=== PATIENT | male | born 1960 | race Caucasian/White ===

== ENCOUNTER 2022-04-13 02:19 | Outpatient (CLI) | payer BC, SELFPAY ==
[2022-04-13 12:24] LABS: Source Nasal/Nares
[2022-04-13 16:03] LABS: COVID-19 PCR Negative (Negative)
== END 2022-04-13 02:20 | disposition home or self-care (01) ==
PROVIDERS: PCP Family Medicine; Visit Provider Surgery
DX: Z20.822 Contact with and (suspected) exposure to COVID-19 (principal); Z01.818 Encounter for other preprocedural examination
CPT/HCPCS: 87635

== ENCOUNTER 2022-04-15 11:08 | Day surgery (SDC) | payer BC, SELFPAY ==
[2022-04-15] VITALS (10 sets, daily range): BP systolic 103–178; BP diastolic 62–94; PULSE 50–69; RESP 11–17; TEMP 36–36.6; O2SAT 94–98; BMI 25.1
--- NOTE | 2022-04-15 07:35 | ROE_ITS ---
Date of service: 04/15/22 Time of Service: 14:02 Operative Note Operative Note DATE OF PROCEDURE: 04/15/22 PRE-OP DIAGNOSIS: left inguinal hernia POST-OP DIAGNOSIS: other (indirect and direct hernia ) PROCEDURE: Left inguinal hernia repair with mesh SURGEON: Emily Fletcher TOXICOLOGY TEACHER: Timothy Webb ANESTHESIA TYPE: Local By Surgeon, General LMA/ETT and Primary Nerve Block Refer to Anesthesia Record ESTIMATED BLOOD LOSS: 15 COMPLICATIONS: None Patient was transported to: PACU Patient's condition: stable Implants: BARD Mesh: REF- [id number] LOT- [id number] 07-24-2025 Indications: Mr. Bruce is a pleasant 61-year-old gentleman with a left inguinal hernia x2 weeks.? It sounds like it was incarcerated yesterday but they were able to reduce it in the emergency department at [facility].? The patient is feeling somewhat better today.? His nausea has almost resolved.? On examination he does have a significant left inguinal hernia.? It is quite easily reduced today.? We discussed hernia repair with mesh in detail as well as the risks, complications and benefits.? We reviewed pain control modalities with a nerve block, preop cocktail of Tylenol celecoxib and gabapentin.? The hope is that he will be able to go home on Tylenol and ibuprofen only.? We also reviewed COVID testing prior to the procedure.? He was given a pamphlet with pictures regarding the repair as well as some pre and post instructions. Risks, benefits and complications have been reviewed. Complications include but are not limited to bleeding, infection, injury to vas, vessels and nerves, injury to bowel and adverse reaction to medications. Questions were entertained and answered to their satisfaction and they wished to proceed. Proceed with left inguinal hernia repair with mesh. Findings: Indirect and direct hernia Procedure Description: After informed concent was obtained the patient was taken to the operating room and placed in a supine position. Monitors and SCDs were applied and a timeout was done. The patient's name, date of , procedure type, procedure site, allergies to medications, preoperative antibiotic, and DVT prophylaxis were all reviewed. Fire risk was assessed. Next anesthesia did a tap block on the left side under ultrasound guidance. Please see their separate dictation. Once anesthesia was done the abdomen was prepped and draped in a sterile nj rgical fashion. 0.5% Marcainel was injected into the dermis in the left lower quadrant. An incision was made with a 10 blade in the left lower quadrant. Dissection was done with cautery through the subcutaneous tissues and Ashlee's fascia down to the external oblique fascia. The external ring was identified and the external oblique fascia was opened sharply through the external ring. The cut fascia was grasped with hemostats the cord structures were identified and a Hardy drain was placed around them. The ilioinguinal nerve was identified and cut. The cremasteric muscle was dissected away from the cord structures using both cautery and blunt dissection. A hernia sac was identified and removed from the cord structures using blunt dissection. The hernia sac was suture ligated and amputated. The remnant was pushed back into the peritoneum. There was a large cord lipoma which was removed from the cord structures. A flat piece of mesh was then attached to the lacunar ligament using a 2-0 Prolene double armed suture. The mesh was secured laterally and medially with a 2-0 Prolene, with a running suture. The tails of the mesh were wrapped around the cord structures effectively cinching down the internal ring. Once the mesh was secured the tissues were irrigated with some normal saline. No bleeding was identified. The external oblique fascia was reapproximated using 2-0 Vicryl running suture. The Ashlee's fascia was reapproximated using interrupted 3-0 Vicryl. The dermis was reapproximated with a running 4-0 Vicryl. The skin was cleaned and dried and skin affix was applied. The patient was woken up and taken back to recovery in stable condition. There were no immediate complications. Sponge, instrument and needle counts were correct at the end of the case x2.
--- NOTE | 2022-04-15 07:37 | PDOC.DSDIS_ITS ---
Discharge Plan Disposition Patient Disposition: HOME Condition: Good Discharge Details Reason For Visit: inguinal hernia repair Attending Provider: Emily Fletcher Primary Care Provider: Deven Perez Home Meds and New Rx's Prescriptions: Continued trazodone 150 mg tablet 150 mg PO DAILY omeprazole 20 mg capsule,delayed release(DR/EC) 20 mg PO DAILY atorvastatin 40 mg tablet 40 mg PO DAILY bupropion HCl 150 mg tablet extended release 24 hr 300 mg PO QAM indomethacin 75 mg capsule, extended release 75 mg PO BID fluoxetine 60 mg tablet 60 mg PO DAILY lisinopril 10 mg tablet 20 mg PO DAILY hydrochlorothiazide 25 mg tablet 25 mg PO DAILY Discharge Instructions Additional Instructions: Activity at Home after surgery: 1. Make sure you walk outside at least 4 times per day 2. You should be able to climb a flight of stairs 3. No driving while in pain or taking pain medications 4. No strenuous activity or heavy lifting for 4 weeks (open surgery). No lifting >10 lb Diet, Nutrition, & wound healin. Avoid alcohol until after you are recovered from your surgery 2. Make sure to eat plenty of lean protein (meat, fish, eggs, cottage cheese, beans) 3. Eat a variety of fruits and vegetables. Eat plenty of high fiber foods to avoid constipation. 4. Drink plenty of liquids to stay hydrated and avoid constipation Pain Medications: 1. Tylenol 650mg every 6 hours as needed and Ibuprofen 600 mg every 6 hours as needed. You may alternate between the 2 medications every 3 hours 2. If a narcotic has been prescribed take as directed only for breakthrough pain For Constipation: 1. Take Milk of Magnesia or MiraLax as needed for constipation Other: 1. You may shower daily. Do not scrub the incisions 2. Do not soak the incisions for 1 week 3. You may alternate ice and heat as needed for pain and swelling Wound Care: 1. Keep the incisions clean and dry Please call our office if you develop: 1. Fevers >101.5 2. Nausea or Vomiting 3. Worsening pain 4. Redness and thick discharge from the wounds If after hours please call the Hospital at and ask to speak to the on-call surgeon Referrals: Emily Fletcher MD [ [facility] STAFF PHYSICIAN] - Activity:: as above Shower/Bathe:: 24 hours Diet:: As Tolerated Discharge Orders Discharge Orders: Discharge Order (Routine); Ordered 04/15/22 Ordered By: Emily Fletcher
--- NOTE | 2022-04-15 08:18 | W.ANESPRE ---
General Info Height: 5 ft 10.5 in Weight: 81.647 kg Body Mass Index (BMI): 25.4 Surgical Procedure: Operation Date: 04/15/22 13:10 Proposed Procedure Side Surgeon p Herniorrhaphy Inguinal w/Mesh Left Emily Fletcher MD Meds Allergies and Home Medications Allergies Allergy/AdvReac Type Severity Reaction Status Date / Time house dust mite Allergy Unknown Verified 04/13/22 11:40 pollen extracts Allergy Unknown Verified 04/13/22 11:40 tree and shrub pollen Allergy Unknown Verified 04/13/22 11:40 weed pollen Allergy Unknown Verified 04/13/22 11:40 Home Medication Medication Instructions Recorded atorvastatin 40 mg tablet 40 mg PO DAILY 09/05/18 bupropion HCl 150 mg 24 hr tablet, 300 mg PO QAM 09/05/18 extended release fluoxetine 60 mg tablet 60 mg PO DAILY 09/05/18 indomethacin 75 mg 75 mg PO BID 09/05/18 capsule,extended release hydrochlorothiazide 25 mg tablet 25 mg PO DAILY 01/07/19 lisinopril 10 mg tablet 20 mg PO DAILY 01/07/19 omeprazole 20 mg capsule,delayed 20 mg PO DAILY 04/05/22 release trazodone 150 mg tablet 150 mg PO DAILY 04/05/22 Current Visit Medications: Current Medications Generic Name Dose Route Start Last Admin Trade Name Freq PRN Reason Stop Dose Admin Acetaminophen 1,000 mg 04/15/22 06:00 Acetaminophen 500 Mg Tab PO 04/15/22 18:00 PREOP NAN Citric Acid/Sodium Citrate 30 ml 04/15/22 06:00 Sodium Citrate 30 Ml Cup PO 04/15/22 18:00 PREOP NAN Gabapentin 300 mg 04/15/22 06:00 Gabapentin 300 Mg Cap PO 04/15/22 18:00 PREOP NAN Ringer's Solution 1,000 mls @ 80 mls/hr 04/15/22 06:00 IV 05/14/22 23:59 INFUSION NAN Ondansetron HCl 4 mg/ Sodium 52 mls @ 200 mls/hr 04/15/22 07:38 Chloride IVPB Q6H PRN PRN IV Miscellaneous Supplies 1 each 04/15/22 06:00 Iv Access IV 05/14/22 23:59 DIRECTED NNA Oxycodone HCl 5 mg 04/15/22 07:38 Oxycodone 5 Mg Tab PO Q3H PRN PRN Pain Sodium Chloride 0 ml 04/15/22 06:00 Normal Saline Flush 10 Ml Syr IV 05/14/22 23:59 PRN PRN Sodium Chloride 0 ml 04/15/22 06:00 Normal Saline 10 Ml Vial IJ 05/14/22 23:59 DIRECTED PRN Sterile Water 0 ml 04/15/22 06:00 Water,Injection,Sterile 10 Ml Vial IJ 05/14/22 23:59 DIRECTED PRN PFSH Active Problems Active Problems: Problem Status Onset Code Left inguinal hernia K40.90 Medical History Medical History (Updated 04/13/22 @ 11:38 by Damaso Zaragoza) Asthma Carpal tunnel syndrome on both sides Chronic fatigue Depression Duodenitis Gastritis GERD (gastroesophageal reflux disease) Hyperlipidemia Hypertension Insomnia Memory loss Per pt. states it his Short-term memory, sometimes walks into a room and can't remember what he went in there for. Has neen neurology. Signs for self. Obstructive sleep apnea PTSD (post-traumatic stress disorder) Surgical History Surgical History H/O knee surgery H/O sinus surgery Tobacco Smoking/Tobacco Use Status: Current-Occasional Tobacco Type: cigarettes Alcohol Alcohol Intake: never Substance Use Substance use: Rarely Substance use type: marijuana Vital Signs and Lab Results Lab Results Blood Type / Crossmatch: No Data to Display Complete Blood Count: No Data to Display Complete Metabolic Panel: No Data to Display Liver Function Panel: No Data to Display Coagulation Panel: No Data to Display Cardiac Panel: No Data to Display Arterial Blood Gas: No Data to Display Venous Blood Gas: No Data to Display Pancreas Panel: No Data to Display Thyroid Panel: No Data to Display Infectious Disease: Coronavirus (COVID-19)(PCR) Negative (Negative) 04/13/22 08:25 Coronavirus 2019 Source Nasal/Nares 04/13/22 08:25 Blood Cultures: No Data to Display Toxicology Panel: No Data to Display Anesthesia Assessment and Plan Anesthesia History Personal History: No History of Anesthesia Complications Family History: Family History Unknown Implantable Cardiac Device Does patient have a Pacemaker or an ICD?: No ASA Classification Emergency Case?: No Anesthesia Plan Resuscitation Status: Full Code Anesthesia Technique: General Anesthesia Airway Planned: LMA Pain Management: Surgeon and patient request nerve block Monitors Used: Standard Monitors Preoperative Comments:: 61 yo male for inguinal hernia repair. Sig PMHx: GERD (omeprozole), HTN (lisinopril/HCTZ), ELIZABETH, PTSD, ELIZABETH, occ smoker (tobacco/cannabis).
[2022-04-15] MEDS: Sodium Citrate 30 ML CUP PO (12:06)
[2022-04-15] MEDS: Gabapentin 300 MG CAP PO (12:06)
[2022-04-15] MEDS: Acetaminophen 500 MG TAB 1000 MG PO (12:06)
[2022-04-15] MEDS: Lactated Ringers 1,000 ML 80 ML IV (12:16)
--- NOTE | 2022-04-15 12:32 | W.ANESPRE ---
General Info Date of Service Date Performed: 04/15/22 Height: 5 ft 10 in Weight: 79.5 kg Body Mass Index (BMI): 25.1 Surgical Procedure: Operation Date: 04/15/22 13:10 Proposed Procedure Side Surgeon p Herniorrhaphy Inguinal w/Mesh Left Emily Fletcher MD Meds Allergies and Home Medications Allergies Allergy/AdvReac Type Severity Reaction Status Date / Time house dust mite Allergy Unknown Verified 04/15/22 11:47 pollen extracts Allergy Unknown Verified 04/15/22 11:47 tree and shrub pollen Allergy Unknown Verified 04/15/22 11:47 weed pollen Allergy Unknown Verified 04/15/22 11:47 Home Medication Medication Instructions Recorded atorvastatin 40 mg tablet 40 mg PO DAILY 09/05/18 bupropion HCl 150 mg 24 hr tablet, 300 mg PO QAM 09/05/18 extended release fluoxetine 60 mg tablet 60 mg PO DAILY 09/05/18 indomethacin 75 mg 75 mg PO BID 09/05/18 capsule,extended release hydrochlorothiazide 25 mg tablet 25 mg PO DAILY 01/07/19 lisinopril 10 mg tablet 20 mg PO DAILY 01/07/19 omeprazole 20 mg capsule,delayed 20 mg PO DAILY 04/05/22 release trazodone 150 mg tablet 150 mg PO DAILY 04/05/22 Current Visit Medications: Current Medications Generic Name Dose Route Start Last Admin Trade Name Freq PRN Reason Stop Dose Admin Acetaminophen 1,000 mg 04/15/22 06:00 04/15/22 12:06 Acetaminophen 500 Mg Tab PO 04/15/22 18:00 1,000 mg PREOP NAN Administration Citric Acid/Sodium Citrate 30 ml 04/15/22 06:00 04/15/22 12:06 Sodium Citrate 30 Ml Cup PO 04/15/22 18:00 30 ml PREOP NAN Administration Gabapentin 300 mg 04/15/22 06:00 04/15/22 12:06 Gabapentin 300 Mg Cap PO 04/15/22 18:00 300 mg PREOP NAN Administration Ringer's Solution 1,000 mls @ 80 mls/hr 04/15/22 06:00 04/15/22 12:16 IV 05/14/22 23:59 80 mls/hr INFUSION NAN Administration Ondansetron HCl 4 mg/ Sodium 52 mls @ 200 mls/hr 04/15/22 07:38 Chloride IVPB Q6H PRN PRN IV Miscellaneous Supplies 1 each 04/15/22 06:00 Iv Access IV 05/14/22 23:59 DIRECTED NAN Oxycodone HCl 5 mg 04/15/22 07:38 Oxycodone 5 Mg Tab PO Q3H PRN PRN Pain Sodium Chloride 0 ml 04/15/22 06:00 Normal Saline Flush 10 Ml Syr IV 05/14/22 23:59 PRN PRN Sodium Chloride 0 ml 04/15/22 06:00 Normal Saline 10 Ml Vial IJ 05/14/22 23:59 DIRECTED PRN Sterile Water 0 ml 04/15/22 06:00 Water,Injection,Sterile 10 Ml Vial IJ 05/14/22 23:59 DIRECTED PRN PFSH Active Problems Active Problems: Problem Status Onset Code Left inguinal hernia K40.90 Medical History Medical History Asthma Carpal tunnel syndrome on both sides Chronic fatigue Depression Duodenitis Gastritis GERD (gastroesophageal reflux disease) Hyperlipidemia Hypertension Insomnia Memory loss Per pt. states it his Short-term memory, sometimes walks into a room and can't remember what he went in there for. Has neen neurology. Signs for self. Obstructive sleep apnea PTSD (post-traumatic stress disorder) Surgical History Surgical History H/O knee surgery H/O sinus surgery Tobacco Smoking/Tobacco Use Status: Current-Occasional Alcohol Alcohol Intake: never Substance Use Substance use: Never Substance use type: marijuana Vital Signs and Lab Results Vital Signs Most Recent Vital Signs in EMR: Most Recent Vital Signs Temp Pulse Resp BP Pulse Ox 36.5 C 69 17 142/92 H 97 04/15/22 11:58 04/15/22 11:58 04/15/22 11:58 04/15/22 11:58 04/15/22 11:58 Lab Results Blood Type / Crossmatch: No Data to Display Complete Blood Count: No Data to Display Complete Metabolic Panel: No Data to Display Liver Function Panel: No Data to Display Coagulation Panel: No Data to Display Cardiac Panel: No Data to Display Arterial Blood Gas: No Data to Display Venous Blood Gas: No Data to Display Pancreas Panel: No Data to Display Thyroid Panel: No Data to Display Infectious Disease: Coronavirus (COVID-19)(PCR) Negative (Negative) 04/13/22 08:25 Coronavirus 2019 Source Nasal/Nares 04/13/22 08:25 Blood Cultures: No Data to Display Toxicology Panel: No Data to Display Anesthesia Assessment and Plan Anesthesia History Personal History: No History of Anesthesia Complications Family History: No Family History of Anesthesia Complications Exercise Tolerance Exercise Tolerance: Metabolic Equivalents>4 Pertinent Negatives Pertinent Negatives: No Symptoms of GERD, No Major Cardiovascular Symptoms or Complaints, No Major Pulmonary Symptoms or Complaints (SMOKER 30+ years, ) and No History of CVA/TIA Cardiac & Pulmonary Exam Cardiac Exam: Normal S1/S2 Heart Sounds Pulmonary Exam: Clear Bilateral Breath Sounds Implantable Cardiac Device Does patient have a Pacemaker or an ICD?: No Airway Exam Known Difficult Airway: No Mallampati Class: 2 Mouth Opening: Normal (> 3cm) Thyromental Distance: Greater than 3 cm Facial Hair: Full Ramos Neck Range of Motion: Full ROM Neck Circumference: Normal Teeth Condition: Generalized Poor Dentition and Edentulous Airway Comments: Edentulous top, bottom teeth poor dentition several missing but solid per pt. ASA Classification ASA Score: ASA 2 Emergency Case?: No NPO Status NPO Status: NPO Clears >2 hours, Solids >8 hours Anesthesia Plan Resuscitation Status: Full Code Anesthesia Technique: General Anesthesia Airway Planned: LMA Monitors Used: Standard Monitors
[2022-04-15] MEDS: ceFAZolin 2 GM/50 ML BAG 100 GM (14:00)
--- NOTE | 2022-04-15 14:19 | W.ANESNERVE ---
Nerve Block Single Injection Procedure Date and Time Date Performed: 04/15/22 Procedure Start: 14:18 Location Where Procedure Performed Procedure Location: Operating Room Procedure Stop: : Reason Performed: Postoperative Analgesia Requesting Provider: Emily Fletcher Timeout Performed Timeout Performed: Yes Monitoring Used ECG, Blood Pressure, SpO2 and ETCO2 Sterility Sterility: Hand Hygiene, Surgical Cap, Surgical Mask, Sterile Gloves, Eye Protection and Chlorhexidine Sedation Given During Procedure Sedation Given (Indicate Dose Given): No Sedation given Patient Mental Status Patient Mental Status: Performed under general anesthesia Nerve Block 1st Nerve Block: Laterality: Left Block Type: TAP Unilateral Needle / Catheter Used: 100mm SonoPlex II Local Anesthetic Bolus (Indicate Dose Given): Bupivacaine 0.375% Dose:: 30 mL Additives (Indicate Dose Given): Decadron Dose:: 4 mg and Precedex Dose:: 40 mcg Ultrasound: Sterile probe cover and gel used Ultrasound Image Saved?: Yes Nerve Stimulator: Not Used Paresthesia: None Procedure Tolerated: No Complications and Patient tolerated well Procedure Outcome: Successful Performed By: Arline Stewart Supervised By: Timoteo Gonzales
[2022-04-15] MEDS: Bupivacaine 0.5% Pres-Free 30 ML VIAL (14:49)
--- NOTE | 2022-04-15 16:50 | W.ANESPOSTOP ---
Postoperative Evaluation Date, Time and Location Date Performed: 04/15/22 Time Performed: 15:50 Patient Location: Day Surgery Unit Vital Signs Most Recent Imported Vital Signs: Most Recent Vital Signs Temp Pulse Resp BP Pulse Ox 36.2 C L 57 L 16 162/91 H 97 04/15/22 16:32 04/15/22 16:32 04/15/22 16:32 04/15/22 16:32 04/15/22 16:32 Pain Score Most Recent Pain Score: Most Recent Pain Score Pain Level 5 04/15/22 16:32 Assessment Mental Status: Awake (Alert & Oriented to Patient Baseline) Airway and Respiratory Function: Patent airway with normal (patient baseline) respiratory exam Cardiovascular Function: Hemodynamically Stable Hydration Status: Adequately Hydrated Nausea & Vomiting: No Nausea or Vomiting Pain: Pain is tolerable per patient Peripheral Nerve Block: Regional nerve block not resolved at time of post operative discharge
[2022-04-15] MEDS: oxyCODONE 5 MG TAB PO (17:07)
== END 2022-04-15 17:45 | disposition home or self-care (01) ==
PROVIDERS: PCP Family Medicine; Visit Provider Surgery
PROC: (CPT 49505; principal; 2022-04-15 13:00)
DX: K40.90 Unilateral inguinal hernia, without obstruction or gangrene, not specified as recurrent (principal); I10 Essential (primary) hypertension; E78.5 Hyperlipidemia, unspecified; K21.9 Gastro-esophageal reflux disease without esophagitis
CPT/HCPCS: 49505; 76942; C1781; J0690; J1100; J2405